=== PATIENT | male | born 1945 | race African-American/Black ===

== ENCOUNTER 2017-07-13 11:01 | Inpatient (IN) | payer BC, MEDICARE ==
[2017-07-13] MEDS: IPRATRPIUM/ALBUTEROL 0.5/2.5MG 3 ML NEBU. NEB ×3 (12:54→20:20)
[2017-07-13 13:25] LABS: BASO % 0 % (0-3); EOS % 0 % (0-3); HEMATOCRIT 42.7 % (39.0-53.0); HEMOGLOBIN 14.6 g/dL (13.0-17.5); LYMPH # 1.3 x10^3/uL (1.0-4.8); LYMPH % 7 % (24-48); MEAN CORPUSCULAR HEMOGLOBIN 31 pg (25-35); MEAN CORPUSCULAR HGB CONC 34 g/dL (31-37); MEAN CORPUSCULAR VOLUME 91 fL (79-100); MONO # 0.9 x10^3/uL (0.0-1.1); MONO % 4 % (0-9); NEUT # 17.7 x10^3uL (1.8-7.7); NEUT % 89 % (31-73); PLATELET COUNT 128 x10^3/uL (140-400); RED BLOOD COUNT 4.68 x10^6/uL (4.30-5.70); RED CELL DISTRIBUTION WIDTH 13.8 % (11.5-14.5); WHITE BLOOD COUNT 19.8 x10^3/uL (4.0-11.0)
[2017-07-13 13:28] LABS: ADD MAN DIFF? YES
[2017-07-13 14:02] LABS: ANION GAP 16 (6-14); BLOOD UREA NITROGEN 47 mg/dL (8-26); CALCIUM 8.6 mg/dL (8.5-10.1); CARBON DIOXIDE 26 mmol/L (21-32); CHLORIDE 101 mmol/L (98-107); CREATININE 3.2 mg/dL (0.7-1.3); GFR 23.3; GLUCOSE 100 mg/dL (70-99); POTASSIUM 3.2 mmol/L (3.5-5.1); SODIUM 143 mmol/L (136-145)
[2017-07-13 14:03] LABS: TROPONINI < 0.017 ng/mL (0.000-0.055)
[2017-07-13 14:06] LABS: ALK PHOS 111 U/L (46-116); ALT (SGPT) 39 U/L (16-63); AST (SGOT) 36 U/L (15-37); DIRECT BILIRUBIN 0.6 mg/dL (0.0-0.2); LIPASE 251 U/L (73-393); TOTAL BILIRUBIN 1.3 mg/dL (0.2-1.0); TOTAL PROTEIN 7.4 g/dL (6.4-8.2)
[2017-07-13 14:09] LABS: NT-PRO BNP 415 pg/mL (0-124)
[2017-07-13] MEDS: ONDANSETRON PF 4 MG/2 ML VIAL. IV (15:07)
[2017-07-13 15:30] LABS: % BANDS 21 % (0-9); % LYMPHS 10 % (24-48); % MONOS 7 % (0-10); % SEGS 62 % (35-66)
[2017-07-13] MEDS: IV NORMAL SALINE 1000ML BAG 1,000 ML IV ×4 (15:30→15:50)
[2017-07-13 15:31] LABS: PLT ESTIMATE DECREASED (ADEQUATE); TOXIC GRANULATION PRESENT
[2017-07-13] MEDS ORDERED: MORPHINE SULFATE 4 MG/ML DISP.SYRIN. IV (15:45)
[2017-07-13] MEDS ORDERED: ONDANSETRON PF 4 MG/2 ML VIAL. IV (15:45)
[2017-07-13] MEDS: PIPERACILLIN/TAZOBACTAM 3.375 GM in IV NORMAL SALINE 50ML 50 ML IV (15:47)
[2017-07-13 15:55] LABS: BILIRUBIN,URINE NEGATIVE (NEG); CLARITY,URINE CLEAR; COLOR,URINE AMBER; GLUCOSE,URINE NEGATIVE (NEG); NITRITE,URINE NEGATIVE (NEG); PH,URINE 5.5; PROTEIN,URINE 100 mg/dL (NEG-TRACE); UROBILINOGEN,URINE 0.2 mg/dL (0.2 mg/dL)
[2017-07-13 16:02] LABS: BACTERIA,URINE 0 /HPF (0-FEW); HYALINE CASTS, URINE MODERATE /HPF
[2017-07-13 16:03] LABS: AMORPHOUS SEDIMENT,UR PRESENT /HPF; WBC,URINE OCC /HPF (0-4)
[2017-07-13] MEDS: ACETAMINOPHEN 325 MG TABLET. PO (21:02)
[2017-07-14] MEDS: IV NORMAL SALINE 1000ML BAG 1,000 ML IV (02:56)
[2017-07-14 06:22] LABS: ADD MAN DIFF? NO
[2017-07-14 06:28] LABS: BASO % 0 % (0-3); EOS % 0 % (0-3); HEMATOCRIT 37.4 % (39.0-53.0); HEMOGLOBIN 12.5 g/dL (13.0-17.5); LYMPH # 1.3 x10^3/uL (1.0-4.8); LYMPH % 7 % (24-48); MEAN CORPUSCULAR HEMOGLOBIN 31 pg (25-35); MEAN CORPUSCULAR HGB CONC 33 g/dL (31-37); MEAN CORPUSCULAR VOLUME 92 fL (79-100); MONO % 6 % (0-9); NEUT # 15.6 x10^3uL (1.8-7.7); NEUT % 87 % (31-73); PLATELET COUNT 121 x10^3/uL (140-400); RED BLOOD COUNT 4.05 x10^6/uL (4.30-5.70); RED CELL DISTRIBUTION WIDTH 13.7 % (11.5-14.5); WHITE BLOOD COUNT 17.9 x10^3/uL (4.0-11.0)
[2017-07-14 06:45] LABS: ANION GAP 15 (6-14); BLOOD UREA NITROGEN 43 mg/dL (8-26); CALCIUM 8.2 mg/dL (8.5-10.1); CARBON DIOXIDE 23 mmol/L (21-32); CHLORIDE 105 mmol/L (98-107); CREATININE 2.6 mg/dL (0.7-1.3); GFR 29.6; GLUCOSE 139 mg/dL (70-99); SODIUM 143 mmol/L (136-145)
[2017-07-14 06:48] LABS: POTASSIUM 2.9 mmol/L (3.5-5.1)
[2017-07-14 06:52] LABS: ALBUMIN 2.2 g/dL (3.4-5.0); ALK PHOS 137 U/L (46-116); ALT (SGPT) 28 U/L (16-63); AST (SGOT) 27 U/L (15-37); DIRECT BILIRUBIN 0.4 mg/dL (0.0-0.2); TOTAL BILIRUBIN 0.7 mg/dL (0.2-1.0); TOTAL PROTEIN 6.7 g/dL (6.4-8.2)
[2017-07-14] MEDS: IPRATRPIUM/ALBUTEROL 0.5/2.5MG 3 ML NEBU. NEB ×3 (07:19→15:52)
[2017-07-14] MEDS: TAMSULOSIN 0.4 MG CAP.ER.24H. PO (08:52)
[2017-07-14] MEDS: POTASSIUM CL 40MEQ IN 0.9%NACL 1,000 ML IV ×2 (08:53→21:09)
[2017-07-14] MEDS: POTASSIUM CHLORIDE 20 MEQ TABLET.ER. PO ×2 (08:53→21:08)
[2017-07-14] MEDS ORDERED: IV NORMAL SALINE 1000ML BAG 1,000 ML IV (09:00)
[2017-07-14] MEDS: CIPROFLOXACIN 400MG PREMIX 200 ML IV (10:50)
[2017-07-14] MEDS: LACTOBACILLUS RHAMNOSUS GG 1 CAPSULE. PO ×2 (13:39→21:08)
[2017-07-14 14:16] LABS: MAGNESIUM 2.3 mg/dL (1.8-2.4)
[2017-07-14 20:12] LABS: POTASSIUM 2.6 mmol/L (3.5-5.1)
[2017-07-14] MEDS: ATORVASTATIN CALCIUM 10 MG TABLET. PO (21:08)
[2017-07-15 05:17] LABS: ADD MAN DIFF? NO
[2017-07-15] MEDS: POTASSIUM CL 40MEQ IN 0.9%NACL 1,000 ML IV ×3 (05:18→23:45)
[2017-07-15 05:24] LABS: BASO % 0 % (0-3); EOS % 0 % (0-3); HEMATOCRIT 34.4 % (39.0-53.0); HEMOGLOBIN 11.6 g/dL (13.0-17.5); LYMPH # 1.3 x10^3/uL (1.0-4.8); LYMPH % 11 % (24-48); MEAN CORPUSCULAR HEMOGLOBIN 31 pg (25-35); MEAN CORPUSCULAR HGB CONC 34 g/dL (31-37); MEAN CORPUSCULAR VOLUME 92 fL (79-100); MONO # 0.8 x10^3/uL (0.0-1.1); MONO % 7 % (0-9); NEUT # 9.6 x10^3uL (1.8-7.7); NEUT % 82 % (31-73); PLATELET COUNT 132 x10^3/uL (140-400); RED BLOOD COUNT 3.76 x10^6/uL (4.30-5.70); RED CELL DISTRIBUTION WIDTH 13.8 % (11.5-14.5); WHITE BLOOD COUNT 11.7 x10^3/uL (4.0-11.0)
[2017-07-15 05:52] LABS: ALBUMIN/GLOBULIN RATIO 0.5 (1.0-1.7); ALK PHOS 105 U/L (46-116); ALT (SGPT) 26 U/L (16-63); ANION GAP 10 (6-14); AST (SGOT) 27 U/L (15-37); BLOOD UREA NITROGEN 28 mg/dL (8-26); BUN/CREATININE RATIO 16 (6-20); CALCIUM 8.5 mg/dL (8.5-10.1); CARBON DIOXIDE 22 mmol/L (21-32); CHLORIDE 109 mmol/L (98-107); CREATININE 1.8 mg/dL (0.7-1.3); GFR 45.2; GLUCOSE 118 mg/dL (70-99); POTASSIUM 3.4 mmol/L (3.5-5.1); SODIUM 141 mmol/L (136-145); TOTAL BILIRUBIN 0.5 mg/dL (0.2-1.0); TOTAL PROTEIN 6.3 g/dL (6.4-8.2)
[2017-07-15] MEDS: LACTOBACILLUS RHAMNOSUS GG 1 CAPSULE. PO ×2 (09:00→21:02)
[2017-07-15] MEDS: CIPROFLOXACIN 400MG PREMIX 200 ML IV ×3 (10:15→21:03)
[2017-07-15 10:36] LABS: BILIRUBIN,URINE NEGATIVE (NEG); CLARITY,URINE CLEAR; COLOR,URINE YELLOW; GLUCOSE,URINE NEGATIVE (NEG); NITRITE,URINE NEGATIVE (NEG); PROTEIN,URINE 30 mg/dL (NEG-TRACE); UROBILINOGEN,URINE 0.2 mg/dL (0.2 mg/dL)
[2017-07-15 10:43] LABS: D-DIMER 1.84 ug/mlFEU (0.00-0.50)
[2017-07-15 11:04] LABS: BACTERIA,URINE FEW /HPF (0-FEW); SQUAMOUS EPITHELIAL CELL,UR OCC /LPF; WBC,URINE OCC /HPF (0-4)
[2017-07-15] MEDS: IPRATRPIUM/ALBUTEROL 0.5/2.5MG 3 ML NEBU. NEB ×3 (12:00→21:15)
[2017-07-15 12:01] LABS: SEDIMENTATION RATE 105 (0-15)
[2017-07-15] MEDS: POTASSIUM CHLORIDE 10 MEQ TABLET.ER. PO ×2 (12:30→17:36)
[2017-07-15] MEDS: TAMSULOSIN 0.4 MG CAP.ER.24H. PO (15:33)
[2017-07-15] MEDS: ATORVASTATIN CALCIUM 10 MG TABLET. PO (21:02)
[2017-07-16 05:07] LABS: ADD MAN DIFF? NO
[2017-07-16 05:11] LABS: BASO % 0 % (0-3); EOS % 0 % (0-3); HEMATOCRIT 35.4 % (39.0-53.0); LYMPH # 1.4 x10^3/uL (1.0-4.8); LYMPH % 16 % (24-48); MEAN CORPUSCULAR HEMOGLOBIN 31 pg (25-35); MEAN CORPUSCULAR HGB CONC 34 g/dL (31-37); MEAN CORPUSCULAR VOLUME 92 fL (79-100); MONO # 0.7 x10^3/uL (0.0-1.1); MONO % 9 % (0-9); NEUT # 6.4 x10^3uL (1.8-7.7); NEUT % 74 % (31-73); PLATELET COUNT 186 x10^3/uL (140-400); RED BLOOD COUNT 3.85 x10^6/uL (4.30-5.70); WHITE BLOOD COUNT 8.6 x10^3/uL (4.0-11.0)
[2017-07-16 05:42] LABS: ALBUMIN 2.1 g/dL (3.4-5.0); ALBUMIN/GLOBULIN RATIO 0.5 (1.0-1.7); ALK PHOS 87 U/L (46-116); ALT (SGPT) 29 U/L (16-63); ANION GAP 12 (6-14); AST (SGOT) 26 U/L (15-37); BLOOD UREA NITROGEN 24 mg/dL (8-26); BUN/CREATININE RATIO 14 (6-20); CALCIUM 8.2 mg/dL (8.5-10.1); CARBON DIOXIDE 19 mmol/L (21-32); CHLORIDE 112 mmol/L (98-107); CREATININE 1.7 mg/dL (0.7-1.3); GFR 48.3; GLUCOSE 110 mg/dL (70-99); SODIUM 143 mmol/L (136-145); TOTAL BILIRUBIN 0.5 mg/dL (0.2-1.0); TOTAL PROTEIN 6.4 g/dL (6.4-8.2)
[2017-07-16] MEDS: IPRATRPIUM/ALBUTEROL 0.5/2.5MG 3 ML NEBU. NEB ×4 (08:00→20:15)
[2017-07-16] MEDS: CIPROFLOXACIN 400MG PREMIX 200 ML IV ×2 (09:38→21:01)
[2017-07-16] MEDS: TAMSULOSIN 0.4 MG CAP.ER.24H. PO (09:38)
[2017-07-16] MEDS: POTASSIUM CHLORIDE 10 MEQ TABLET.ER. PO ×3 (09:38→17:40)
[2017-07-16] MEDS: LACTOBACILLUS RHAMNOSUS GG 1 CAPSULE. PO ×2 (09:38→21:00)
[2017-07-16] MEDS: POTASSIUM CL 40MEQ IN 0.9%NACL 1,000 ML IV ×2 (10:39→19:30)
[2017-07-16] MEDS: ATORVASTATIN CALCIUM 10 MG TABLET. PO (21:00)
[2017-07-17] MEDS: POTASSIUM CL 40MEQ IN 0.9%NACL 1,000 ML IV ×2 (05:36→05:39)
[2017-07-17] MEDS: IPRATRPIUM/ALBUTEROL 0.5/2.5MG 3 ML NEBU. NEB ×2 (08:18→11:13)
[2017-07-17 08:38] LABS: ADD MAN DIFF? NO
[2017-07-17 08:51] LABS: ANION GAP 11 (6-14); BLOOD UREA NITROGEN 16 mg/dL (8-26); CALCIUM 8.7 mg/dL (8.5-10.1); CARBON DIOXIDE 24 mmol/L (21-32); CHLORIDE 107 mmol/L (98-107); CREATININE 1.5 mg/dL (0.7-1.3); GFR 55.8; GLUCOSE 106 mg/dL (70-99); POTASSIUM 3.9 mmol/L (3.5-5.1); SODIUM 142 mmol/L (136-145)
[2017-07-17 08:52] LABS: BASO % 0 % (0-3); EOS % 0 % (0-3); HEMATOCRIT 38.4 % (39.0-53.0); HEMOGLOBIN 12.8 g/dL (13.0-17.5); LYMPH # 1.7 x10^3/uL (1.0-4.8); LYMPH % 20 % (24-48); MEAN CORPUSCULAR HEMOGLOBIN 31 pg (25-35); MEAN CORPUSCULAR HGB CONC 33 g/dL (31-37); MEAN CORPUSCULAR VOLUME 93 fL (79-100); MONO # 0.8 x10^3/uL (0.0-1.1); MONO % 9 % (0-9); NEUT # 6.2 x10^3uL (1.8-7.7); NEUT % 71 % (31-73); PLATELET COUNT 249 x10^3/uL (140-400); RED BLOOD COUNT 4.13 x10^6/uL (4.30-5.70); RED CELL DISTRIBUTION WIDTH 13.8 % (11.5-14.5); WHITE BLOOD COUNT 8.8 x10^3/uL (4.0-11.0)
[2017-07-17] MEDS: TAMSULOSIN 0.4 MG CAP.ER.24H. PO (09:14)
[2017-07-17] MEDS: CIPROFLOXACIN 400MG PREMIX 200 ML IV (09:14)
[2017-07-17] MEDS: POTASSIUM CHLORIDE 10 MEQ TABLET.ER. PO ×2 (09:14→11:58)
[2017-07-17] MEDS: LACTOBACILLUS RHAMNOSUS GG 1 CAPSULE. PO (09:14)
== END 2017-07-17 12:50 | disposition home or self-care (01) | DRG 871 ==
LOC: ER 11:01 → 5 SOUTH 15:36
DX: A41.9 Sepsis, unspecified organism (principal); N17.0 Acute kidney failure with tubular necrosis; D69.6 Thrombocytopenia, unspecified; K51.90 Ulcerative colitis, unspecified, without complications; E86.0 Dehydration; E78.00 Pure hypercholesterolemia, unspecified; E78.5 Hyperlipidemia, unspecified; E87.6 Hypokalemia; I10 Essential (primary) hypertension; K76.0 Fatty (change of) liver, not elsewhere classified; Z96.653 Presence of artificial knee joint, bilateral; N40.1 Benign prostatic hyperplasia with lower urinary tract symptoms; Z90.49 Acquired absence of other specified parts of digestive tract; Z93.2 Ileostomy status; Z93.3 Colostomy status
CPT/HCPCS: 36415; 71045; 71250; 74176; 74181; 80048; 80053; 80076; 81001; 83690; 83735; 83880; 84132; 84484; 85007; 85025; 85379; 85651; 93005; 94640; 96365; 96375; 99285-25; J0744; J2405; J2543; J3480; J3490; J7030; J7620

== ENCOUNTER 2017-09-04 11:25 | Emergency (ER) | payer BC, MEDICARE ==
[2017-09-04] MEDS: ONDANSETRON PF 4 MG/2 ML VIAL. IV (12:15)
[2017-09-04 12:18] LABS: ADD MAN DIFF? NO
[2017-09-04 12:20] LABS: BASO % 0 % (0-3); EOS % 1 % (0-3); HEMATOCRIT 38.7 % (39.0-53.0); HEMOGLOBIN 13.4 g/dL (13.0-17.5); LYMPH # 1.7 x10^3/uL (1.0-4.8); LYMPH % 20 % (24-48); MEAN CORPUSCULAR HEMOGLOBIN 32 pg (25-35); MEAN CORPUSCULAR HGB CONC 35 g/dL (31-37); MEAN CORPUSCULAR VOLUME 92 fL (79-100); MONO # 0.5 x10^3/uL (0.0-1.1); MONO % 6 % (0-9); NEUT % 73 % (31-73); PLATELET COUNT 214 x10^3/uL (140-400); RED BLOOD COUNT 4.23 x10^6/uL (4.30-5.70); RED CELL DISTRIBUTION WIDTH 13.6 % (11.5-14.5); WHITE BLOOD COUNT 8.2 x10^3/uL (4.0-11.0)
[2017-09-04 12:31] LABS: ANION GAP 14 (6-14); BLOOD UREA NITROGEN 22 mg/dL (8-26); BUN/CREATININE RATIO 12 (6-20); CALCIUM 8.8 mg/dL (8.5-10.1); CARBON DIOXIDE 22 mmol/L (21-32); CHLORIDE 106 mmol/L (98-107); CREATININE 1.9 mg/dL (0.7-1.3); GFR 42.5; GLUCOSE 91 mg/dL (70-99); POTASSIUM 3.4 mmol/L (3.5-5.1); SODIUM 142 mmol/L (136-145)
[2017-09-04 12:39] LABS: ALBUMIN 3.4 g/dL (3.4-5.0); ALBUMIN/GLOBULIN RATIO 0.9 (1.0-1.7); ALK PHOS 92 U/L (46-116); ALT (SGPT) 24 U/L (16-63); AST (SGOT) 17 U/L (15-37); LIPASE 318 U/L (73-393); TOTAL BILIRUBIN 0.4 mg/dL (0.2-1.0); TOTAL PROTEIN 7.1 g/dL (6.4-8.2)
[2017-09-04 12:41] LABS: TROPONINI < 0.017 ng/mL (0.000-0.055)
[2017-09-04] MEDS: PANTOPRAZOLE IV PUSH 40 MG VIAL. IVP (13:10)
== END 2017-09-04 16:32 | disposition home or self-care (01) ==
LOC: ER 11:25
DX: R10.13 Epigastric pain (principal); R11.2 Nausea with vomiting, unspecified; E78.00 Pure hypercholesterolemia, unspecified; I10 Essential (primary) hypertension; Z93.3 Colostomy status
CPT/HCPCS: 36415; 74022; 80053; 83690; 84484; 85025; 93005; 96374; 99285-25; C9113

== ENCOUNTER → 2017-09-13 | Day surgery (SDC) | payer BC, MEDICARE ==
[~2017-09-13] MED LIST: LIDOCAINE 1% PF 2 ML VIAL. ID; LIDOCAINE 2% PF Vial for OR 5 ML VIAL.; MORPHINE SULFATE 4 MG/ML DISP.SYRIN. IV; PROCHLORPERAZINE 10 MG/2 ML VIAL. IV; PROPOFOL 20 ML IV; fentaNYL PF VIAL 100 MCG/2 ML VIAL IV
[2017-09-13] MEDS: IV RINGERS,LACTATED 1000ML 1,000 ML IV (06:38)
== END | disposition home or self-care (01) ==
LOC: ENDOS 05:53
DX: K21.0 Gastro-esophageal reflux disease with esophagitis (principal); K29.50 Unspecified chronic gastritis without bleeding; K31.5 Obstruction of duodenum; K26.7 Chronic duodenal ulcer without hemorrhage or perforation; K26.3 Acute duodenal ulcer without hemorrhage or perforation; I10 Essential (primary) hypertension; Z79.899 Other long term (current) drug therapy; E78.00 Pure hypercholesterolemia, unspecified; Z90.49 Acquired absence of other specified parts of digestive tract; Z93.3 Colostomy status; Z96.653 Presence of artificial knee joint, bilateral; Z72.89 Other problems related to lifestyle; Z98.890 Other specified postprocedural states
CPT/HCPCS: 43239; 88305; 88342; J2704

== ENCOUNTER → 2017-12-29 | Outpatient (CLI) | payer BC, MEDICARE ==
[2017-09-13 07:46] VITALS: BP 103/70
[~2017-12-29] MED LIST changes: +ALFU10TA3 PO; +AMLO5TAB2 PO; +LEVO500T59 PO; -LIDOCAINE 1% PF 2 ML VIAL. ID; -LIDOCAINE 2% PF Vial for OR 5 ML VIAL.; +LOSA50TA6 PO; -MORPHINE SULFATE 4 MG/ML DISP.SYRIN. IV; +PANT20TA2 PO; +PRAV40TA2 PO; +PROC10TA57 PO; -PROCHLORPERAZINE 10 MG/2 ML VIAL. IV; -PROPOFOL 20 ML IV; +SILD100T PO; -fentaNYL PF VIAL 100 MCG/2 ML VIAL IV
--- NOTE | 2017-12-29 16:33 | RAD ---
EXAM: Thyroid sonogram. HISTORY: Thyroid nodule on CT. TECHNIQUE: Sonographic imaging of the thyroid was performed. COMPARISON: 07/14/2017. FINDINGS: The right thyroid lobe measures 4.1 x 1.6 x 1.9 cm. The left thyroid lobe measures 4.5 x 1.7 x 1.6 cm. The isthmus measures 4.5 mm. The thyroid parenchyma is heterogeneous. There is a colloid cyst within the thyroid isthmus measuring 4 x 3 x 2 mm. There is a solid hypoechoic nodule with small cystic component within the inferior left thyroid lobe measuring 9 x 9 x 8 mm. IMPRESSION: 1. 9 mm nodule with small cystic component within the inferior left thyroid lobe. 2. 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 3. Heterogeneous thyroid parenchyma. This is not clearly within limits to suggest the sequela of thyroiditis. Electronically signed by: Alicia Michelle MD (12/29/2017 4:29 PM) [facility] [place]
== END | disposition home or self-care (01) ==
LOC: US 12:13
PROVIDERS: ATTEND Family Medicine
DX: E04.1 Nontoxic single thyroid nodule (principal); G93.0 Cerebral cysts; E78.5 Hyperlipidemia, unspecified; E78.00 Pure hypercholesterolemia, unspecified; E87.6 Hypokalemia; I10 Essential (primary) hypertension; K21.0 Gastro-esophageal reflux disease with esophagitis; Z96.653 Presence of artificial knee joint, bilateral; Z90.49 Acquired absence of other specified parts of digestive tract; Z79.899 Other long term (current) drug therapy
CPT/HCPCS: 76536

== ENCOUNTER → 2021-06-17 | Outpatient (CLI) | payer MEDICARE ==
[2017-09-13 07:46] VITALS: BP 103/70
[~2021-06-17] MED LIST changes: -ALFU10TA3 PO; +ALFU10TA4 PO; +AMLO-186 PO; -AMLO5TAB2 PO; +LOSA-73 PO; -LOSA50TA6 PO
--- NOTE | 2021-06-17 15:07 | KCIC ---
EXAM: Chest, 2 views. HISTORY: Cough. COMPARISON: None. FINDINGS: 2 views of the chest are obtained. There is no infiltrate, pleural effusion or pneumothorax . The heart is normal in size. IMPRESSION: No acute pulmonary finding. Electronically signed by: Alicia Michelle MD (06/17/2021 3:05 PM) [id number]
== END ==
LOC: KCIC 14:11
PROVIDERS: ATTEND Family Medicine
DX: R05.9 Cough, unspecified (principal)
CPT/HCPCS: 71046